=== PATIENT | female | born 1995 ===

== ENCOUNTER 2024-05-25 02:35 | Emergency (ER) | payer OTHER ==
[~2024-05-25] VITALS: Ht 167.6 cm; Wt 72.7 kg
[2024-05-25 02:38] VITALS: BP 128/80; PULSE 109; RESP 21; TEMP 99.8; O2SAT 99
[2024-05-25] MEDS: KETOROLAC TROMETHAMINE 30 MG/ML VIAL IVP ONE (02:56)
== END 2024-05-25 03:07 | disposition home or self-care (01) ==
LOC: EMS 02:35
DX: S00.03XA Contusion of scalp, initial encounter (principal); R51.9 Headache, unspecified; Z65.3 Problems related to other legal circumstances; Y04.0XXA Assault by unarmed brawl or fight, initial encounter; Y93.89 Activity, other specified; Y92.89 Other specified places as the place of occurrence of the external cause; Y99.8 Other external cause status
CPT/HCPCS: 99283; 96374; J1885